=== PATIENT | female | born 1945 | race American Indian/Alaskan Native ===

== ENCOUNTER 2016-08-29 12:42 | Outpatient (CLI) | payer MEDICARE ==
--- NOTE | 2016-08-29 16:47 | Cat Scan Report ---
CT of the abdomen and pelvis without contrast. History: Left-sided abdominal and pelvic pain. Findings: The liver, spleen, and pancreas are normal. There is a 3 mm stone in the lower pole of the right kidney. There is no hydronephrosis. There is a 4.9 cm round cystic mass in the upper pole of the left kidney. There is a subcentimeter cystic mass in the anterior aspect of the lower pole of the left kidney. There is no hydronephrosis. There is no adenopathy within the retroperitoneum. No pelvic masses or abnormal fluid collections are seen. There is no mesenteric inflammation. The uterus is absent. The appendix is normal. Impression: 1. Left renal cysts, largest in the upper pole. 2. 3 mm right renal stone with no hydronephrosis.
== END 2016-08-29 12:43 | disposition home or self-care (01) ==
LOC: CT 12:42
PROVIDERS: ATTEND Internal Medicine
DX: N28.1 Cyst of kidney, acquired (principal); N20.0 Calculus of kidney; N93.8 Other specified abnormal uterine and vaginal bleeding; Z90.710 Acquired absence of both cervix and uterus
CPT/HCPCS: 74176

== ENCOUNTER 2016-12-29 10:43 | Inpatient (IN) | payer MEDICARE ==
[2016-12-29] MEDS ORDERED: NACL 0.9% 1000 ML 1,000 ML IV ONE (11:40)
[2016-12-29 12:04] LABS: Basophils % (Auto) 0.4 % (0.0-1.8); Eosinophils % (Auto) 1.1 % (0.0-4.3); Hematocrit 30.2 % (30.3-42.9); Hemoglobin 9.6 gm/dl (10.1-14.3); Mean Corpuscular HGB Conc 32 % (30-34); Mean Corpuscular Volume 75 fl (79-97); Platelet Count 267 K/mm3 (140-440); Red Blood Count 4.05 M/mm3 (3.65-5.03); Red Cell Distribution Width 16.3 % (13.2-15.2); White Blood Count 8.1 K/mm3 (4.5-11.0)
[2016-12-29 12:09] LABS: Mean Corpuscular Hemoglobin 24 pg (28-32)
[2016-12-29 12:16] LABS: INR 0.98 (0.87-1.13)
[2016-12-29 12:17] LABS: Partial Thromboplastin Time 34.6 Sec. (24.2-36.6)
[2016-12-29 12:23] LABS: Albumin 3.6 g/dL (3.9-5); Albumin/Globulin Ratio 1.2 %; Alkaline Phosphatase 89 units/L (35-129); Anion Gap 16 mmol/L; BUN/Creatinine Ratio 22.66; Blood Urea Nitrogen 34 mg/dL (7-17); Calcium 8.7 mg/dL (8.4-10.2); Carbon Dioxide 28 mmol/L (22-30); Chloride 102.5 mmol/L (98-107); Glucose 112 mg/dL (65-100); Lipase 19 units/L (13-60); Potassium 4.6 mmol/L (3.6-5.0); Sodium 142 mmol/L (137-145); Total Protein 6.7 g/dL (6.3-8.2)
[2016-12-29 12:30] LABS: Alanine Aminotransferase < 5 units/L (7-56)
--- NOTE | 2016-12-29 13:41 | Emergency Department Report ---
ED GI Bleed HPI - General Chief complaint: GI Bleed Stated complaint: PASSING BLOOD CLOTS IN STOOL Time Seen by Provider: 12/29/16 13:21 Source: patient Mode of arrival: Ambulatory Limitations: No Limitations - History of Present Illness MD complaint: melena, blood streaked stool, gross hematochezia -: days(s) (TWO DAYS) Radiation: none Severity scale (0 -10): 0 - Related Data Home Medications Medication Instructions Recorded Confirmed Last Taken Aspirin EC [Aspirin Enteric Coated 2 tab PO DAILY 03/09/14 03/23/14 03/09/14 TAB] Gabapentin 400 mg PO DAILY 03/09/14 03/23/14 03/22/14 Lisinopril 10 mg PO BID 03/09/14 03/23/14 03/22/14 08:00 Multivitamin [Multi-Vitamin Daily] 1 each PO DAILY 03/09/14 03/23/14 03/09/14 Sertraline [Zoloft] 50 mg PO HS 03/09/14 03/23/14 03/22/14 Triamter/Hctz 75-50 mg [Maxzide 1 tab PO QDAY 03/09/14 03/23/14 03/22/14 75-50 mg] amLODIPine [Norvasc] 10 mg PO DAILY 03/09/14 03/23/14 03/22/14 metFORMIN [Glucophage] 500 mg PO BID 03/09/14 03/23/14 03/22/14 08:00 Previous Rx's Medication Instructions Recorded Last Taken Type Enoxaparin [Lovenox] 40 mg SQ QDAY #14 syringe 03/25/14 Unknown Rx Oxycodone HCl/Acetaminophen 1 each PO Q6HR PRN #60 tablet 03/25/14 Unknown Rx [Percocet 7.5/325 mg] Allergies Allergy/AdvReac Type Severity Reaction Status Date / Time No Known Allergies Allergy Verified 12/29/16 11:39 ED Review of Systems ROS: Stated complaint: PASSING BLOOD CLOTS IN STOOL Other details as noted in HPI Comment: All other systems reviewed and negative Constitutional: denies: chills, fever Respiratory: denies: cough, shortness of breath, SOB with exertion Cardiovascular: palpitations, syncope. denies: chest pain Gastrointestinal: diarrhea, melena, hematochezia. denies: abdominal pain, nausea, vomiting, constipation, hematemesis Neurological: denies: headache Hematological/Lymphatic: denies: easy bleeding, easy bruising, swollen glands ED Past Medical Hx - Past Medical History Hx Hypertension: Yes Hx Diabetes: Yes (NO MEDS) Hx Renal Disease: Yes Hx Arthritis: Yes Hx Kidney Stones: Yes - Surgical History Additional Surgical History: LEFT KNEE REPLACEMENT. HYSTERECTOMY - Social History Smoking Status: Never Smoker Substance Use Type: None - Medications Home Medications: Home Medications Medication Instructions Recorded Confirmed Last Taken Type Aspirin EC [Aspirin Enteric Coated 2 tab PO DAILY 03/09/14 03/23/14 03/09/14 History TAB] Gabapentin 400 mg PO DAILY 03/09/14 03/23/14 03/22/14 History Lisinopril 10 mg PO BID 03/09/14 03/23/14 03/22/14 08:00 History Multivitamin [Multi-Vitamin Daily] 1 each PO DAILY 03/09/14 03/23/14 03/09/14 History Sertraline [Zoloft] 50 mg PO HS 03/09/14 03/23/14 03/22/14 History Triamter/Hctz 75-50 mg [Maxzide 1 tab PO QDAY 03/09/14 03/23/14 03/22/14 History 75-50 mg] amLODIPine [Norvasc] 10 mg PO DAILY 03/09/14 03/23/14 03/22/14 History metFORMIN [Glucophage] 500 mg PO BID 03/09/14 03/23/14 03/22/14 08:00 History Enoxaparin [Lovenox] 40 mg SQ QDAY #14 syringe 03/25/14 Unknown Rx Oxycodone HCl/Acetaminophen 1 each PO Q6HR PRN #60 tablet 03/25/14 Unknown Rx [Percocet 7.5/325 mg] ED Physical Exam - General Limitations: No Limitations General appearance: alert - Head Head exam: Present: atraumatic - Eye Eye exam: Present: normal appearance - ENT ENT exam: Present: normal exam - Neck Neck exam: Present: normal inspection - Respiratory Respiratory exam: Present: normal lung sounds bilaterally. Absent: wheezes, rales, rhonchi - Cardiovascular Cardiovascular Exam: Present: tachycardia - GI/Abdominal GI/Abdominal exam: Present: soft. Absent: tenderness, guarding, rebound - Rectal Rectal exam: Present: normal inspection, normal rectal tone, heme (+) stool, black stool, bloody stool. Absent: fecal impaction, hemorrhoids, mass, tenderness - Back Exam Back exam: Absent: normal inspection, CVA tenderness (R), CVA tenderness (L) - Neurological Exam Neurological exam: Present: alert, oriented X3, CN II-XII intact, normal gait, reflexes normal. Absent: motor sensory deficit - Skin Skin exam: Present: warm, dry, intact, normal color. Absent: pallor ED Course Vital Signs 12/29/16 12/29/16 12/29/16 11:29 13:04 13:07 Temperature 97.9 F 98.7 F Pulse Rate 107 H 97 H Respiratory 18 12 Rate Blood Pressure 144/92 Blood Pressure 104/62 [Left] O2 Sat by Pulse 98 98 98 Oximetry - Reevaluation(s) Reevaluation #1: 12/29/16 14:[address] ARVIZU FROM GI AND DR FERNANDEZ FOR ADMISSION. ED Medical Decision Making - Lab Data Result diagrams: 12/29/16 11:49 12/29/16 11:49 Critical care attestation.: If time is entered above; I have spent that time in minutes in the direct care of this critically ill patient, excluding procedure time. ED Disposition Clinical Impression: GI bleeding Disposition: DC-09 OP ADMIT IP TO THIS HOSP Is pt being admited?: Yes Does the pt Need Aspirin: No Condition: Stable Forms: Accompanied Note
--- NOTE | 2016-12-29 15:10 | History and Physical Report ---
History of Present Illness Date of examination: 12/29/16 Date of admission: 12/29/16 Chief complaint: Chief complaint: BRBPR for 2 days History of present illness: History of present illness: 71-year-old -[place] female with history of hypertension diabetes depression comes in for bright red blood per rectum for 2 days. I'll also blood clots in the stool for 2 days. Feels lightheaded and weak. No shortness of breath. No fever or chills. - Past Medical History Hx Hypertension: Yes Hx Diabetes: Yes Hx Renal Disease: Yes Hx Arthritis: Yes Hx Kidney Stones: Yes - Surgical History Additional Surgical History: LEFT KNEE REPLACEMENT. HYSTERECTOMY - Social History Smoking Status: Never Smoker Substance Use Type: None Family history hypertension - Medications Home Medications: Home Medications Medication Instructions Recorded Confirmed Last Taken Type Aspirin EC [Aspirin Enteric Coated 2 tab PO DAILY 03/09/14 03/23/14 03/09/14 History TAB] Gabapentin 400 mg PO DAILY 03/09/14 03/23/14 03/22/14 History Lisinopril 10 mg PO BID 03/09/14 03/23/14 03/22/14 08:00 History Multivitamin [Multi-Vitamin Daily] 1 each PO DAILY 03/09/14 03/23/14 03/09/14 History Sertraline [Zoloft] 50 mg PO HS 03/09/14 03/23/14 03/22/14 History Triamter/Hctz 75-50 mg [Maxzide 1 tab PO QDAY 03/09/14 03/23/14 03/22/14 History 75-50 mg] amLODIPine [Norvasc] 10 mg PO DAILY 03/09/14 03/23/14 03/22/14 History metFORMIN [Glucophage] 500 mg PO BID 03/09/14 03/23/14 03/22/14 08:00 History Enoxaparin [Lovenox] 40 mg SQ QDAY #14 syringe 03/25/14 Unknown Rx Oxycodone HCl/Acetaminophen 1 each PO Q6HR PRN #60 tablet 03/25/14 Unknown Rx [Percocet 7.5/325 mg] Review of System: Constitutional: no fever, no chills, no weight loss Ears, eyes, nose, mouth and throat: no nasal congestion, no nasal discharge, no sinus pressure, no vision change, no red eye. Neck: No neck pain or rigidity. Cardiovascular: No chest pain, no orthopnea, no palpitations, no leg swelling Respiratory: No shortness of breath, no cough, no congestion, no wheezing Gastrointestinal: no abdominal pain, no nausea, no vomiting bright red blood per rectum for 2 days. Genitourinary : no dysuria, no hematuria Musculoskeletal: no joint swelling or muscle ache Integumentary: no rash, no pruritis Neurological: no parathesias, no numbness, no tingling Endocrine: no cold or heat intolerance, no polyuria or polydipsia Hematologic/Lymphatic: no easy bruising, no easy bleeding, no gland swelling Allergic/Immunologic: no urticaria, no angioedema. Medications and Allergies Allergies Allergy/AdvReac Type Severity Reaction Status Date / Time No Known Allergies Allergy Verified 12/29/16 11:39 Home Medications Medication Instructions Recorded Confirmed Last Taken Type Aspirin EC [Aspirin Enteric Coated 2 tab PO DAILY 03/09/14 03/23/14 03/09/14 History TAB] Gabapentin 400 mg PO DAILY 03/09/14 03/23/14 03/22/14 History Lisinopril 10 mg PO BID 03/09/14 03/23/14 03/22/14 08:00 History Multivitamin [Multi-Vitamin Daily] 1 each PO DAILY 03/09/14 03/23/14 03/09/14 History Sertraline [Zoloft] 50 mg PO HS 03/09/14 03/23/14 03/22/14 History Triamter/Hctz 75-50 mg [Maxzide 1 tab PO QDAY 03/09/14 03/23/14 03/22/14 History 75-50 mg] amLODIPine [Norvasc] 10 mg PO DAILY 03/09/14 03/23/14 03/22/14 History metFORMIN [Glucophage] 500 mg PO BID 03/09/14 03/23/14 03/22/14 08:00 History Enoxaparin [Lovenox] 40 mg SQ QDAY #14 syringe 03/25/14 Unknown Rx Oxycodone HCl/Acetaminophen 1 each PO Q6HR PRN #60 tablet 03/25/14 Unknown Rx [Percocet 7.5/325 mg] Active Meds: Active Medications Sodium Chloride (Nacl 0.9% 1000 Ml) 1,000 mls @ 250 mls/hr IV ONCE ONE Stop: 12/29/16 15:39 Last Admin: 12/29/16 13:40 Dose: 250 mls/hr Exam - Physical Exam Narrative exam: Lying in bed comfortably - Constitutional Vitals: Temp Pulse Resp BP Pulse Ox 98.7 F 97 H 12 104/62 98 12/29/16 13:04 12/29/16 13:04 12/29/16 13:04 12/29/16 13:04 12/29/16 13:07 General appearance: Present: no acute distress, well-nourished - EENT Eyes: Present: PERRL ENT: hearing intact, clear oral mucosa - Neck Neck: Present: supple, normal ROM - Respiratory Respiratory effort: normal Respiratory: bilateral: CTA - Cardiovascular Heart Sounds: Present: S1 & S2. Absent: rub, click - Extremities Extremities: pulses symmetrical, No edema Peripheral Pulses: within normal limits - Abdominal General gastrointestinal: Present: soft, non-tender, non-distended, normal bowel sounds Female genitourinary: Present: normal - Integumentary Integumentary: Present: clear, warm, dry - Musculoskeletal Musculoskeletal: gait normal, strength equal bilaterally - Psychiatric Psychiatric: appropriate mood/affect, intact judgment & insight - Neurologic Neurologic: CNII-XII intact, moves all extremities Results - Labs CBC & Chem 7: 12/29/16 11:49 12/29/16 11:49 Labs: Laboratory Last Values WBC 8.1 K/mm3 (4.5-11.0) 12/29/16 11:49 RBC 4.05 M/mm3 (3.65-5.03) 12/29/16 11:49 Hgb 9.6 gm/dl (10.1-14.3) L 12/29/16 11:49 Hct 30.2 % (30.3-42.9) L 12/29/16 11:49 MCV 75 fl (79-97) L 12/29/16 11:49 MCH 24 pg (28-32) L 12/29/16 11:49 MCHC 32 % (30-34) 12/29/16 11:49 RDW 16.3 % (13.2-15.2) H 12/29/16 11:49 Plt Count 267 K/mm3 (140-440) 12/29/16 11:49 Lymph % (Auto) 30.7 % (13.4-35.0) 12/29/16 11:49 [place] % (Auto) 7.3 % (0.0-7.3) 12/29/16 11:49 Eos % (Auto) 1.1 % (0.0-4.3) 12/29/16 11:49 Baso % (Auto) 0.4 % (0.0-1.8) 12/29/16 11:49 Lymph # 2.5 K/mm3 (1.2-5.4) 12/29/16 11:49 [place] # 0.6 K/mm3 (0.0-0.8) 12/29/16 11:49 Eos # 0.1 K/mm3 (0.0-0.4) 12/29/16 11:49 Baso # 0.0 K/mm3 (0.0-0.1) 12/29/16 11:49 Seg Neutrophils % 60.5 % (40.0-70.0) 12/29/16 11:49 Seg Neutrophils # 4.9 K/mm3 (1.8-7.7) 12/29/16 11:49 PT 13.5 Sec. (12.2-14.9) 12/29/16 11:49 INR 0.98 (0.87-1.13) 12/29/16 11:49 APTT 34.6 Sec. (24.2-36.6) 12/29/16 11:49 Sodium 142 mmol/L (137-145) 12/29/16 11:49 Potassium 4.6 mmol/L (3.6-5.0) 12/29/16 11:49 Chloride 102.5 mmol/L (98-107) 12/29/16 11:49 Carbon Dioxide 28 mmol/L (22-30) 12/29/16 11:49 Anion Gap 16 mmol/L 12/29/16 11:49 BUN 34 mg/dL (7-17) H 12/29/16 11:49 Creatinine 1.5 mg/dL (0.7-1.2) H 12/29/16 11:49 Estimated GFR 42 ml/min 12/29/16 11:49 BUN/Creatinine Ratio 22.66 % 12/29/16 11:49 Glucose 112 mg/dL (65-100) H 12/29/16 11:49 Calcium 8.7 mg/dL (8.4-10.2) 12/29/16 11:49 Total Bilirubin 0.20 mg/dL (0.1-1.2) 12/29/16 11:49 AST 12 units/L (5-40) 12/29/16 11:49 ALT < 5 units/L (7-56) L 12/29/16 11:49 Alkaline Phosphatase 89 units/L (35-129) 12/29/16 11:49 Total Protein 6.7 g/dL (6.3-8.2) 12/29/16 11:49 Albumin 3.6 g/dL (3.9-5) L 12/29/16 11:49 Albumin/Globulin Ratio 1.2 % 12/29/16 11:49 Lipase 19 units/L (13-60) 12/29/16 11:49 Blood Type O POSITIVE 12/29/16 11:49 Antibody Screen TNR 12/29/16 11:49 KB Antibody Screen Negative 12/29/16 11:49 Short CBC 12/29/16 Range/Units 11:49 WBC 8.1 (4.5-11.0) K/mm3 Hgb 9.6 L (10.1-14.3) gm/dl Hct 30.2 L (30.3-42.9) % Plt Count 267 (140-440) K/mm3 BMP 12/29/16 11:49 Sodium 142 Potassium 4.6 Chloride 102.5 Carbon Dioxide 28 BUN 34 H Creatinine 1.5 H Glucose 112 H Calcium 8.7 Liver Function 12/29/16 Range/Units 11:49 Total Bilirubin 0.20 (0.1-1.2) mg/dL AST 12 (5-40) units/L ALT < 5 L (7-56) units/L Alkaline Phosphatase 89 (35-129) units/L Albumin 3.6 L (3.9-5) g/dL Assessment and Plan Advance Directives: Yes (full code) VTE prophylaxis?: Mechanical Plan of care discussed with patient/family: Yes - Patient Problems (1) Lower GI bleed Current Visit: Yes Status: Acute Plan to address problem: Monitor hematocrit every 6 hours and transfuse if necessary. GI consult requested. Possibly secondary to diverticulosis. We will defer to gastroenterology regarding colonoscopy. We will keep the patient nothing by mouth. IV fluids for volume support. IV Protonix 40 mg every 12. Hours. (2) Diabetes mellitus Current Visit: No Status: Chronic Qualifiers: Diabetes mellitus type: type 2 Diabetes mellitus complication status: without complication Diabetes mellitus complication detail: D Diabetic retinopathy severity: D Proliferative retinopathy type: P Diabetes mellitus macular edema: D Diabetes mellitus terminal worker insulin use: D Laterality: L Chronic kidney disease stage: C Plan to address problem: Coverage for now. Will hold metformin. Check hemoglobin A1c (3) Hypertension Current Visit: No Status: Chronic Qualifiers: Hypertension type: essential hypertension Qualified Code(s): I10 - Essential (primary) hypertension Plan to address problem: continue lisinopril (4) Depression Current Visit: Yes Status: Chronic Qualifiers: Depression Type: dysthymia Major depression recurrence: M Active/ Remission status: A Major depression episode severity: M Psychotic features : P Trimester: T Qualified Code(s): F34.1 - Dysthymic disorder Plan to address problem: Continue Zoloft. (5) DVT prophylaxis Current Visit: No Status: Acute Plan to address problem: SCDs for now
[2016-12-29] MEDS ORDERED: DILAUDID IV PRN (15:11)
[2016-12-29] MEDS ORDERED: DULCOLAX PR PRN (15:11)
[2016-12-29] MEDS ORDERED: MILK OF MAGNESIA PO PRN (15:11)
[2016-12-29] MEDS ORDERED: TYLENOL PO PRN (15:11)
[2016-12-29] MEDS ORDERED: ZOFRAN IV PRN (15:11)
[2016-12-29] MEDS ORDERED: D50W (25GM) IV PRN (15:11)
[2016-12-29] MEDS ORDERED: CATAPRES-TTS PATCH TD SCH (16:00)
[2016-12-29] MEDS: PROTONIX IV SCH ×2 (16:31→21:57)
[2016-12-30 05:54] LABS: Basophils % (Auto) 0.5 % (0.0-1.8); Eosinophils % (Auto) 2.3 % (0.0-4.3); Mean Corpuscular HGB Conc 32 % (30-34); Mean Corpuscular Hemoglobin 24 pg (28-32); Mean Corpuscular Volume 75 fl (79-97); Platelet Count 208 K/mm3 (140-440); Red Blood Count 3.33 M/mm3 (3.65-5.03); Red Cell Distribution Width 16.4 % (13.2-15.2); White Blood Count 5.5 K/mm3 (4.5-11.0)
[2016-12-30 06:16] LABS: Albumin 2.9 g/dL (3.9-5); Albumin/Globulin Ratio 1.1 %; Alkaline Phosphatase 75 units/L (35-129); Anion Gap 15 mmol/L; Blood Urea Nitrogen 25 mg/dL (7-17); Calcium 8.5 mg/dL (8.4-10.2); Carbon Dioxide 25 mmol/L (22-30); Chloride 105.2 mmol/L (98-107); Glucose 100 mg/dL (65-100); Potassium 4.1 mmol/L (3.6-5.0); Sodium 141 mmol/L (137-145); Total Protein 5.6 g/dL (6.3-8.2)
[2016-12-30 06:17] LABS: Alanine Aminotransferase < 5 units/L (7-56)
[2016-12-30] MEDS: NACL 0.9% 1000 ML 1,000 ML IV SCH ×2 (06:56→19:29)
--- NOTE | 2016-12-30 09:58 | Admit Criteria Form ---
Admission Criteria Documentation: GASTROINTESTINAL BLEEDING, LOWER Clinical Indications for Admission to Inpatient Care ( Place 'X' for any and all applicable criteria): Admission is indicated for ANY ONE of the following(1)(2)(3)(4)(5): [ ]I. Active gross bleeding per rectum [X]II. Inpatient admission required rather than observation care (Also use Gastrointestinal Bleeding, Lower: Observation Care as appropriate) because of ANY ONE of the following: [ ]a) Hemodynamic instability that is severe or persistent [ ]b) Anemia requiring inpatient admission as indicated by ALL of the following: [ ]1) Presence of significant clinical finding indicated by ANY ONE of the following: [ ]A. Tachycardia for age [ ]B. Orthostatic vital sign changes [ ]C. Cognitive impairment [ ]D. Heart failure [ ]E. Chest pain [ ]F. Exertional dyspnea [ ]G. Other findings suggesting inadequate perfusion (eg, peripheral or myocardial ischemia, end organ dysfunction) [ ]2) Initial (eg, emergency department, observation care) treatment with transfusion or volume replacement is judged inappropriate (due to severity of the finding) or has been ineffective [ ]c) Severe pain requiring acute inpatient management [ ]d) Absent bowel sounds with complete ileus [ ]e) Signs of intestinal obstruction or peritonitis [A] [ ]f) High-risk low platelet count [ ]g) Severe electrolyte abnormalities requiring inpatient care [ ]h) Acute renal failure [ ]i) High fever or infection requiring inpatient admission as indicated by ANY ONE of the following(8)(9): [ ]1) Appropriate outpatient or observation care antimicrobial treatment unavailable, not effective, or not feasible Documented bacteremia [ ]2) Documented bacteremia [ ]3) Temperature greater than 104.9 degrees F ( 40.5 degrees C) (oral) [ ]4) Temperature greater than 103.1 degrees F ( 39.5 degrees C) (oral) or less than 96.8 degrees F (36 degrees C) (rectal) that does not respond to all emergency treatment measures [ ]j) IV fluid to replace significant ongoing losses ( greater than 3 L/m2 per day) [ ]k) Immediate inpatient surgery needed [ ]l) Parenteral nutrition regimen that must be implemented on inpatient basis [X]m) Other condition, treatment or monitoring requiring inpatient admission [ ]III. Unstable comorbid illness (renal, hepatic, pulmonary, hematologic, neurologic, or cardiac) [ ]IV. Failure to control bleeding after colonoscopy [ ]V. Coagulopathy [ ]. Suspected or known ischemic colitis(6) [ ]VII. Previous aortic graft placement or known aortic aneurysm Extended stay beyond goal length of stay may be needed for(3)(4)(28): [ ]a) Emergency surgery [ ]b) Coagulation abnormalities(26) [ ]c) Recurrent or persistent bleeding, continued vital sign instability(27)( 28) [ ]d) Active comorbidities (eg, renal insufficiency, heart failure, pre- existing liver disease) The original [employer] content created by [employer] has been revised. The portions of the content which have been revised are identified through the use of italic text or in bold, and [facility] has neither reviewed nor approved the modified material. All other unmodified content is copyright [facility]. Please see references footnoted in the original [employer] edition 2016 Admission Criteria Met: Yes
--- NOTE | 2016-12-30 10:25 | Gastroenterology Consultation ---
History of Present Illness - Reason for Consult Consult date: 12/30/16 GI bleed Requesting physician: MARVA MATTHEWS - History of Present Illness Patient is a 71 y/o female who presented to the ER with c/o BRBPR x 2 days, lightheadedness, and feeling weak. This morning pt was sitting up on the side of the bed, no acute distress noted. Reports having BRBPR in the toilet and on TP after BMs for past 2 days. She admits to seeing intermittent blood clots with BMs but states stool is brown. Denies BM or active signs of bleeding this morning. Denies CP, SOB, dizziness, abd pain, N/V, fever, wt loss, melena, diarrhea, or constipation. No hx or Fhx of IBD or liver disease. No NSAID or ETOH use. Reports having an EGD/colonoscopy approximately 3 to 4 years ago with negative results. No Fhx of colon CA. PMH significant for HTN, DM, and depression. Past History Past Medical History: diabetes, hypertension, other (depression) Past Surgical History: hysterectomy, total knee replacement Social history: lives with family. denies: smoking, alcohol abuse Family history: cancer (breast) Medications and Allergies Allergies Allergy/AdvReac Type Severity Reaction Status Date / Time No Known Allergies Allergy Verified 12/29/16 11:39 Home Medications Medication Instructions Recorded Confirmed Last Taken Type Lisinopril 10 mg PO BID 03/09/14 12/30/16 12/28/16 08:00 History Multivitamin [Multi-Vitamin Daily] 1 each PO DAILY 03/09/14 12/30/16 12/28/16 08 :00 History Triamter/Hctz 75-50 mg [Maxzide 1 tab PO QDAY 03/09/14 12/30/16 12/28/16 History 75-50 mg] amLODIPine [Norvasc] 10 mg PO DAILY 03/09/14 12/30/16 12/28/16 08:00 History Active Meds: Active Medications Acetaminophen (Tylenol) 650 mg PO Q4H PRN PRN Reason: Pain MILD(1-3)/Fever >100.5/ACUNA Last Admin: 12/30/16 07:45 Dose: 650 mg Bisacodyl (Dulcolax) 10 mg [place] QDAY PRN PRN Reason: Constipation unrelieved by MOM Clonidine HCl (Catapres-Tts Patch) 0.2 mg TD QWEEK [facility] Last Admin: 12/29/16 16:30 Dose: Not Given Dextrose (D50w (25gm)) 50 ml IV PRN PRN PRN Reason: Hypoglycemia Hydromorphone HCl (Dilaudid) 0.5 mg IV Q3H PRN PRN Reason: Pain , Severe (7-10) Sodium Chloride (Nacl 0.9% 1000 Ml) 1,000 mls @ 75 mls/hr IV DIRECT [facility] Last Admin: 12/30/16 06:56 Dose: 75 mls/hr Magnesium Hydroxide (Milk Of Magnesia) 30 ml PO Q4H PRN PRN Reason: Constipation Ondansetron HCl (Zofran) 4 mg IV Q8H PRN PRN Reason: N/V unrelieved by Reglan Pantoprazole Sodium (Protonix) 40 mg IV BID [facility] Last Admin: 12/29/16 21:57 Dose: 40 mg Pneumococcal Polyvalent Vaccine (Pneumovax 23) 0.5 ml IM .ONCE ONE Stop: 12/30/16 12:01 Review of Systems - Review of Systems All systems: negative Constitutional: fatigue, weakness Gastrointestinal: BRBPR, no abdominal pain, no nausea, no vomiting, no hematemesis, no coffee ground emesis, no melena Exam - Constitutional Vital Signs: Temp Pulse Resp BP Pulse Ox 98.0 F 82 18 132/62 95 12/30/16 08:00 12/30/16 08:00 12/30/16 08:00 12/30/16 08:00 12/30/16 08:00 General appearance: no acute distress, well-nourished, obese - EENT Eyes: PERRL, EOM intact ENT: hearing intact - Neck Neck: supple, normal ROM - Respiratory Respiratory: bilateral: CTA - Cardiovascular Rhythm: regular Heart Sounds: Present: S1 & S2 Extremities: No edema - Gastrointestinal General gastrointestinal: Present: soft, non-tender, non-distended, normal bowel sounds - Integumentary Integumentary: Present: warm, dry - Neurologic Neurological: alert and oriented x3 - Psychiatric Psychiatric: appropriate mood/affect, cooperative - Labs CBC & Chem 7: 12/30/16 05:14 12/30/16 05:14 Lab Results: Laboratory Results - last 24 hr 12/30/16 12/30/16 05:14 05:14 WBC 5.5 RBC 3.33 L Hgb 8.0 L Hct 25.0 L MCV 75 L MCH 24 L MCHC 32 RDW 16.4 H Plt Count 208 Lymph % (Auto) 30.0 [place] % (Auto) 7.2 Eos % (Auto) 2.3 Baso % (Auto) 0.5 Lymph # 1.6 [place] # 0.4 Eos # 0.1 Baso # 0.0 Seg Neutrophils % 60.0 Seg Neutrophils # 3.3 Sodium 141 Potassium 4.1 Chloride 105.2 Carbon Dioxide 25 Anion Gap 15 BUN 25 H Creatinine 1.0 Estimated GFR > 60 BUN/Creatinine Ratio 25.00 Glucose 100 Calcium 8.5 Total Bilirubin 0.30 AST 11 ALT < 5 L Alkaline Phosphatase 75 Total Protein 5.6 L Albumin 2.9 L Albumin/Globulin Ratio 1.1 Assessment and Plan 1.GI bleed 2.hematochezia -HGB 8 today -continue to monitor H&H and transfuse as needed -hold blood thinning medications -no active signs of bleeding today, currently hemodynamically stable -clear liquid diet today -NPO after MN -will schedule for colonoscopy in am -will follow
[2016-12-30] MEDS: PROTONIX IV SCH ×2 (10:34→23:03)
--- NOTE | 2016-12-30 10:44 | Progress Note ---
Assessment and Plan Assessment and plan: Patient is a 71-year-old woman history of hypertension, type 2 diabetes mellitus , CK D stage III, OA and chronic anemia who presents to [facility] emergency department with rectal bleeding. -Acute on chronic blood loss anemia due to GI bleed: Monitor H&H closely, colonoscopy a.m. -Acute renal failure/CK D3, due to vasomotor nephropathy present on admission: Hydrate, repeat BMP a.m. -Morbid obesity, BMI 45.7: [employer] on lifestyle modification, consult dietitian -Type 2 diabetes mellitus: Sliding scale, ADA diet -Essential hypertension: Continue to monitor -DVT prophylaxis: SCDs only due to anemia and GI bleed History Interval history: Patient seen and examined. Follow up on current diagnosis/GI bleed. Overnight uneventful. No cp, sob, n/v or severe headaches. Imaging, old records, testing, labs, nursing notes reviewed. Hospitalist Physical - Physical exam Narrative exam: GEN: WDWN, NAD, AWAKE, ALERT, ORIENTATED x 3, morbid obesity HEENT: NCAT, PERRL, EOMI, OP CLEAR NECK: SUPPLE, NO THYROMEGALY, NO JVD, NO LAD CVS: RRR, NORMAL S1S2 LUNGS/CHEST: CTA B, NORMAL CHEST EXPANSION B, GOOD AIR ENTRY B ABD: SOFT, NTND, GBS, NO REBOUND OR GUARDING EXT/SKIN: NO SIGNIFICANT EDEMA OR RASH MSK: FROM X 4 EXTREMITIES NEURO: CN 2-12 GROSSLY INTACT, NO FOCAL DEFICITS PSY: CALM - Constitutional Vitals: Temp Pulse Resp BP Pulse Ox 98.0 F 82 18 132/62 95 12/30/16 08:00 12/30/16 08:00 12/30/16 08:00 12/30/16 08:00 12/30/16 08:00 General appearance: Present: no acute distress, well-nourished Results - Labs CBC & Chem 7: 12/30/16 05:14 12/30/16 05:14 Labs: Laboratory Last Values WBC 5.5 K/mm3 (4.5-11.0) 12/30/16 05:14 RBC 3.33 M/mm3 (3.65-5.03) L 12/30/16 05:14 Hgb 8.0 gm/dl (10.1-14.3) L 12/30/16 05:14 Hct 25.0 % (30.3-42.9) L 12/30/16 05:14 MCV 75 fl (79-97) L 12/30/16 05:14 MCH 24 pg (28-32) L 12/30/16 05:14 MCHC 32 % (30-34) 12/30/16 05:14 RDW 16.4 % (13.2-15.2) H 12/30/16 05:14 Plt Count 208 K/mm3 (140-440) 12/30/16 05:14 Lymph % (Auto) 30.0 % (13.4-35.0) 12/30/16 05:14 [place] % (Auto) 7.2 % (0.0-7.3) 12/30/16 05:14 Eos % (Auto) 2.3 % (0.0-4.3) 12/30/16 05:14 Baso % (Auto) 0.5 % (0.0-1.8) 12/30/16 05:14 Lymph # 1.6 K/mm3 (1.2-5.4) 12/30/16 05:14 [place] # 0.4 K/mm3 (0.0-0.8) 12/30/16 05:14 Eos # 0.1 K/mm3 (0.0-0.4) 12/30/16 05:14 Baso # 0.0 K/mm3 (0.0-0.1) 12/30/16 05:14 Seg Neutrophils % 60.0 % (40.0-70.0) 12/30/16 05:14 Seg Neutrophils # 3.3 K/mm3 (1.8-7.7) 12/30/16 05:14 PT 13.5 Sec. (12.2-14.9) 12/29/16 11:49 INR 0.98 (0.87-1.13) 12/29/16 11:49 APTT 34.6 Sec. (24.2-36.6) 12/29/16 11:49 Sodium 141 mmol/L (137-145) 12/30/16 05:14 Potassium 4.1 mmol/L (3.6-5.0) 12/30/16 05:14 Chloride 105.2 mmol/L (98-107) 12/30/16 05:14 Carbon Dioxide 25 mmol/L (22-30) 12/30/16 05:14 Anion Gap 15 mmol/L 12/30/16 05:14 BUN 25 mg/dL (7-17) H 12/30/16 05:14 Creatinine 1.0 mg/dL (0.7-1.2) 12/30/16 05:14 Estimated GFR > 60 ml/min 12/30/16 05:14 BUN/Creatinine Ratio 25.00 % 12/30/16 05:14 Glucose 100 mg/dL (65-100) 12/30/16 05:14 Calcium 8.5 mg/dL (8.4-10.2) 12/30/16 05:14 Total Bilirubin 0.30 mg/dL (0.1-1.2) 12/30/16 05:14 AST 11 units/L (5-40) 12/30/16 05:14 ALT < 5 units/L (7-56) L 12/30/16 05:14 Alkaline Phosphatase 75 units/L (35-129) 12/30/16 05:14 Total Protein 5.6 g/dL (6.3-8.2) L 12/30/16 05:14 Albumin 2.9 g/dL (3.9-5) L 12/30/16 05:14 Albumin/Globulin Ratio 1.1 % 12/30/16 05:14 Lipase 19 units/L (13-60) 12/29/16 11:49 Blood Type O POSITIVE 12/29/16 11:49 Antibody Screen TNR 12/29/16 11:49 KB Antibody Screen Negative 12/29/16 11:49
[2016-12-30] MEDS ORDERED: PNEUMOVAX 23 IM ONE (12:00)
[2016-12-30] MEDS ORDERED: GOLYTELY PO ONE ×2 (12:00→16:00)
[2016-12-30 13:44] LABS: Hematocrit 24.4 % (30.3-42.9); Hemoglobin 7.8 gm/dl (10.1-14.3)
[2016-12-30 21:45] LABS: Hematocrit 24.1 % (30.3-42.9); Hemoglobin 7.7 gm/dl (10.1-14.3)
[2016-12-31 05:38] LABS: Hematocrit 23.4 % (30.3-42.9); Hemoglobin 7.8 gm/dl (10.1-14.3); Mean Corpuscular HGB Conc 33 % (30-34); Mean Corpuscular Volume 75 fl (79-97); Platelet Count 220 K/mm3 (140-440); Red Blood Count 3.14 M/mm3 (3.65-5.03); Red Cell Distribution Width 16.7 % (13.2-15.2); White Blood Count 6.6 K/mm3 (4.5-11.0)
[2016-12-31 05:53] LABS: BUN/Creatinine Ratio 12.72; Calcium 7.9 mg/dL (8.4-10.2); Chloride 105.3 mmol/L (98-107); Potassium 3.9 mmol/L (3.6-5.0)
[2016-12-31 05:55] LABS: Mean Corpuscular Hemoglobin 25 pg (28-32)
[2016-12-31] MEDS: NACL 0.9% 1000 ML 1,000 ML IV SCH ×2 (06:35→12:24)
[2016-12-31] MEDS: PROTONIX IV SCH (11:06)
--- NOTE | 2016-12-31 11:18 | Progress Note ---
Assessment and Plan Assessment and plan: Acute on chronic blood loss anemia due to GI bleed. Monitor H&H closely, colonoscopy today Acute renal failure/CK D3, due to vasomotor nephropathy present on admission. Resolved. Morbid obesity, BMI 45.7: [facility] Resident on lifestyle modification, consult dietitian Type 2 diabetes mellitus: Continue Sliding scale, ADA diet Essential hypertension: Continue to monitor DVT prophylaxis: SCDs only due to anemia and GI bleed History Interval history: No new issues overnight. Patient with no active episodes of bleeding. Hospitalist Physical - Constitutional Vitals: Temp Pulse Resp BP Pulse Ox 97.9 F 85 20 139/63 95 12/31/16 08:00 12/31/16 08:00 12/31/16 08:00 12/31/16 08:00 12/31/16 04:00 General appearance: Present: no acute distress, well-nourished - EENT Eyes: Present: PERRL, EOM intact ENT: hearing intact, clear oral mucosa, dentition normal - Neck Neck: Present: supple, normal ROM - Respiratory Respiratory effort: normal Respiratory: bilateral: CTA - Cardiovascular Rhythm: regular Heart Sounds: Present: S1 & S2. Absent: gallop, rub - Extremities Extremities: no ischemia, No edema, Full ROM - Abdominal General gastrointestinal: soft, non-tender, non-distended, normal bowel sounds - Integumentary Integumentary: Present: clear, warm, dry - Neurologic Neurologic: CNII-XII intact, moves all extremities Results - Labs CBC & Chem 7: 12/31/16 04:19 12/31/16 04:19 Labs: Laboratory Last Values WBC 6.6 K/mm3 (4.5-11.0) 12/31/16 04:19 RBC 3.14 M/mm3 (3.65-5.03) L 12/31/16 04:19 Hgb 7.8 gm/dl (10.1-14.3) L 12/31/16 04:19 Hct 23.4 % (30.3-42.9) L 12/31/16 04:19 MCV 75 fl (79-97) L 12/31/16 04:19 MCH 25 pg (28-32) L 12/31/16 04:19 MCHC 33 % (30-34) 12/31/16 04:19 RDW 16.7 % (13.2-15.2) H 12/31/16 04:19 Plt Count 220 K/mm3 (140-440) 12/31/16 04:19 Lymph % (Auto) 30.0 % (13.4-35.0) 12/30/16 05:14 [place] % (Auto) 7.2 % (0.0-7.3) 12/30/16 05:14 Eos % (Auto) 2.3 % (0.0-4.3) 12/30/16 05:14 Baso % (Auto) 0.5 % (0.0-1.8) 12/30/16 05:14 Lymph # 1.6 K/mm3 (1.2-5.4) 12/30/16 05:14 [place] # 0.4 K/mm3 (0.0-0.8) 12/30/16 05:14 Eos # 0.1 K/mm3 (0.0-0.4) 12/30/16 05:14 Baso # 0.0 K/mm3 (0.0-0.1) 12/30/16 05:14 Seg Neutrophils % 60.0 % (40.0-70.0) 12/30/16 05:14 Seg Neutrophils # 3.3 K/mm3 (1.8-7.7) 12/30/16 05:14 PT 13.5 Sec. (12.2-14.9) 12/29/16 11:49 INR 0.98 (0.87-1.13) 12/29/16 11:49 APTT 34.6 Sec. (24.2-36.6) 12/29/16 11:49 Sodium 141 mmol/L (137-145) 12/31/16 04:19 Potassium 3.9 mmol/L (3.6-5.0) 12/31/16 04:19 Chloride 105.3 mmol/L (98-107) 12/31/16 04:19 Carbon Dioxide 25 mmol/L (22-30) 12/31/16 04:19 Anion Gap 15 mmol/L 12/31/16 04:19 BUN 14 mg/dL (7-17) 12/31/16 04:19 Creatinine 1.1 mg/dL (0.7-1.2) 12/31/16 04:19 Estimated GFR 60 ml/min 12/31/16 04:19 BUN/Creatinine Ratio 12.72 % 12/31/16 04:19 Glucose 98 mg/dL (65-100) 12/31/16 04:19 Calcium 7.9 mg/dL (8.4-10.2) L 12/31/16 04:19 Total Bilirubin 0.30 mg/dL (0.1-1.2) 12/30/16 05:14 AST 11 units/L (5-40) 12/30/16 05:14 ALT < 5 units/L (7-56) L 12/30/16 05:14 Alkaline Phosphatase 75 units/L (35-129) 12/30/16 05:14 Total Protein 5.6 g/dL (6.3-8.2) L 12/30/16 05:14 Albumin 2.9 g/dL (3.9-5) L 12/30/16 05:14 Albumin/Globulin Ratio 1.1 % 12/30/16 05:14 Lipase 19 units/L (13-60) 12/29/16 11:49 Blood Type O POSITIVE 12/29/16 11:49 Antibody Screen TNR 12/29/16 11:49 KB Antibody Screen Negative 12/29/16 11:49
--- NOTE | 2016-12-31 12:15 | Anesthesia Consultation ---
Anesthesia Consult and Med Hx Date of service: 12/31/16 - Airway Anesthetic Teeth Evaluation: Partials ROM Head & Neck: Adequate Mental/Hyoid Distance: Adequate Mallampati Class: Class II Intubation Access Assessment: Probably Good - Pulmonary Exam CTA: Yes - Cardiac Exam Cardiac Exam: RRR - Pre-Operative Health Status ASA Pre-Surgery Classification: ASA3 Proposed Anesthetic Plan: MAC - Pulmonary Hx Smoking: No Hx Sleep Apnea: No - Cardiovascular System Hx Hypertension: Yes Hx Angina: No - Gastrointestinal Hx Gastroesophageal Reflux Disease: No - Endocrine Hx Renal Disease: Yes (elevated creatinine on admission- resolved) Hx Non-Insulin Dependent Diabetes: Yes (borderline) - Other Systems Hx Alcohol Use: Yes (X2 MONTH)
--- NOTE | 2016-12-31 12:16 | Anesthesia Day of Surgery ---
Anesthesia Day of Surgery - Day of Surgery Patient Examined: Yes Patient H&P Reviewed: Yes Patient is NPO: Yes
[2016-12-31] MEDS ORDERED: WATER FOR IRRIG STERILE ONE (13:19)
[2016-12-31] MEDS ORDERED: DIPRIVAN 10 MG/ML IV ONE ×2 (13:51)
[2016-12-31] MEDS ORDERED: INFANTS' GAS RELIEF PO ONE (14:01)
--- NOTE | 2016-12-31 14:20 | Post Operative Note ---
Pre-op diagnosis: GI Bleed Post-op diagnosis: other (Tics, IH) Findings: 1. Grade II Internal Hemorrhoids 2. Trace brown stool, easily lavaged, no blood 3. Diverticulosis (mild in sigmoid, a couple in R colon); likely source of bleeding Procedure: Colonoscopy Anesthesia: MAC Surgeon: XIAO ARVIZU Estimated blood loss: none Pathology: none Specimen disposition: other (N/A) Condition: stable Disposition: floor (Recs: 1. Regular diet. 2. MVI daily therapy. 3. May d/c in the AM if no bleeding and hct improved. 4. If rebleeds, would get EGD and angiogram CT (or bleed scan). 5. Avoid all NSAIDs for 2 weeks.)
--- NOTE | 2016-12-31 14:24 | Post Anesthesia Evaluation ---
- Post Anesthesia Evaluation Patient Participated: Yes Airway Patent: Yes Stable Respiratory Function: Yes Temp > 96.8F: Yes Pain Manageable: Yes Adequeate Hydration: Yes Anesthesia Complications: No Block Receding Appropriately: Not Applicable
[2016-12-31] MEDS: THERAGRAN-M Tab PO SCH (16:10)
--- NOTE | 2016-12-31 18:50 | Operative Report ---
PROCEDURE PERFORMED: Colonoscopy. PREOPERATIVE DIAGNOSIS: Gastrointestinal bleeding. POSTOPERATIVE DIAGNOSES: Hemorrhoids, diverticulosis, no active bleeding. ENDOSCOPIST: El Abbott MD. INSTRUMENT: Shadow Puppet video endoscope. MEDICATIONS: MAC anesthesia by Anesthesia Services. COMPLICATIONS: No apparent complications. ESTIMATED BLOOD LOSS: None. SPECIMENS: None. IMPLANTS: None. ASSISTANTS: None. CONDITION AT COMPLETION: Stable. TECHNIQUE: The patient was informed of risks and benefits of the procedure. She signed the informed consent to proceed. She was placed in left lateral decubitus position. The above sedative medications were given. Her vital signs remained stable throughout the procedure. The instrument was advanced from the anus to the cecum under direct visualization. The cecum was identified by the appendiceal orifice, the ileocecal valve, and cannulation of the terminal ileum. At that point, the bowel was insufflated and the endoscope was slowly withdrawn. FINDINGS: 1. No active bleeding in the colon with a trace of brown stool that was easily lavaged even in the terminal ileum. 2. Grade 2 internal hemorrhoids, not actively bleeding. 3. Isolated diverticulosis; there were a few in the sigmoid colon and a couple in the right colon; these were likely the source of bleeding, but no active bleeding was noted. 4. Good visualization was seen of the right colon/cecum and no evidence of arteriovenous malformations were noted. RECOMMENDATIONS: 1. Regular diet. 2. Multivitamin daily therapy. 3. May discharge in the morning if no bleeding and if hematocrit is improved. 4. If the patient rebleeds, she should get an upper endoscopy and an angiogram/CT or a bleeding scan. 4. Avoid all nonsteroidal anti-inflammatory drugs for 2 weeks. JOB# [id number] AIXA/NTS
[2017-01-01 06:22] LABS: Basophils % (Auto) 0.5 % (0.0-1.8); Eosinophils % (Auto) 2.1 % (0.0-4.3); Hematocrit 23.9 % (30.3-42.9); Hemoglobin 7.7 gm/dl (10.1-14.3); Mean Corpuscular HGB Conc 32 % (30-34); Mean Corpuscular Volume 76 fl (79-97); Platelet Count 231 K/mm3 (140-440); Red Blood Count 3.17 M/mm3 (3.65-5.03); Red Cell Distribution Width 16.5 % (13.2-15.2); White Blood Count 5.8 K/mm3 (4.5-11.0)
[2017-01-01 06:26] LABS: Mean Corpuscular Hemoglobin 24 pg (28-32)
[2017-01-01 06:35] LABS: BUN/Creatinine Ratio 10.9; Calcium 8.1 mg/dL (8.4-10.2); Potassium 4.1 mmol/L (3.6-5.0)
--- NOTE | 2017-01-01 07:53 | Discharge Summary ---
Providers - Providers Date of Admission: 12/29/16 14:58 Date of discharge: 01/01/17 Attending physician: NIKI GREENFIELD 12/30/16 10:45 Consult to Dietitian/Nutrition [CONS] Routine Physician Instructions: Reason For Exam: Reason for Consult: Diet education Primary care physician: SENIOR PRODUCT ANALYST Hospitalization Reason for admission: symptomatic anemia Condition: Stable Hospital course: Patient is a 71 y/o female with significant past medical history of hypertension , diabetes mellitus and depression presented to the ER with c/o BRBPR x 2 days, lightheadedness, and feeling weak. She admits to seeing intermittent blood clots with BMs prior to admission. She denies CP, SOB, dizziness, abd pain, N/ V, fever, wt loss, melena, diarrhea, or constipation. No hx or Fhx of IBD or liver disease. No NSAID or ETOH use. Reports having an EGD/colonoscopy approximately 3 to 4 years ago with negative results. No Fhx of colon CA. The patient was seen by GI consultation who performed a colonoscopy which revealed grade 2 internal hemorrhoids, trace brown stool that was easily lavaged with no blood and diverticulosis which is thought to be the source of bleeding. GI recommended a regular diet, multivitamin daily therapy and discharged home. Patient is to avoid all NSAIDs for the next 2 weeks. H&H remained stable, therefore patient will be discharged home. Dedicated discharge time 31 minutes. Disposition: DC-01 TO HOME OR SELFCARE Time spent for discharge: 31 Core Measure Documentation - Palliative Care Palliative Care/ Comfort Measures: Not Applicable - Core Measures Any of the following diagnoses?: none Exam - Constitutional Vitals: Temp Pulse Resp BP Pulse Ox 98.6 F 107 H 20 125/58 100 12/31/16 23:00 12/31/16 23:00 01/01/17 03:44 12/31/16 23:00 12/31/16 23:00 General appearance: Present: no acute distress, well-nourished - EENT Eyes: Present: PERRL ENT: hearing intact, clear oral mucosa - Neck Neck: Present: supple, normal ROM - Respiratory Respiratory effort: normal Respiratory: bilateral: CTA - Cardiovascular Heart Sounds: Present: S1 & S2. Absent: rub, click - Extremities Extremities: pulses symmetrical, No edema Peripheral Pulses: within normal limits - Abdominal General gastrointestinal: Present: soft, non-tender, non-distended, normal bowel sounds Female genitourinary: Present: normal - Integumentary Integumentary: Present: clear, warm, dry - Musculoskeletal Musculoskeletal: gait normal, strength equal bilaterally - Psychiatric Psychiatric: appropriate mood/affect, intact judgment & insight - Neurologic Neurologic: CNII-XII intact, moves all extremities Plan Activity: no restrictions Weight Bearing Status: Full Weight Bearing Diet: regular Follow up with: PRIMARY CAREMD [Primary Care Provider] - 3-5 Days XIAO ARVIZU MD [Staff Physician] - 7 Days Forms: Accompanied Note Prescriptions: amLODIPine [Norvasc] 10 mg PO DAILY #30 tablet Multivitamin Tab W-MINERAL [Multiple Vitamin/Mineral (Theragran M)] 1 each PO QDAY #30 tablet Pantoprazole [Protonix TAB] 40 mg PO QDAY #30 tablet Triamter/Hctz 75-50 mg [Maxzide 75-50 mg] 1 tab PO QDAY #30 tablet
[2017-01-01] MEDS: THERAGRAN-M Tab PO SCH (09:30)
[2017-01-01] MEDS ORDERED: PROTONIX PO SCH (10:00)
--- NOTE | 2017-01-01 10:04 | Gastroenterology Progress Note ---
Assessment and Plan - Patient Problems (1) Acute blood loss anemia Current Visit: Yes Status: Acute Plan to address problem: - Colonoscopy 12/31 (-) except tics and trace brown stool. - Patient does have a hx of chronic anemia (has taken iron in the past) but no prior record of hemoglobinopathy panel (will draw) and will also check her total iron stores. - Will continue MVI therapy and protonix daily. - Will recheck labs at noon; if stable or improved, OK to d/c home. - F/U clinic to decide re: capsule endoscopy. Subjective Date of service: 01/01/17 Principal diagnosis: GI Bleed Interval history: The patient tolerated a regular diet yesterday and this AM. She has had no N/V/ abdominal pain. She has had no blood per rectum, hematemesis, or melena since prior to the colonoscopy. Objective - Constitutional Vitals: Temp Pulse Resp BP Pulse Ox 97.8 F 78 18 137/68 99 01/01/17 08:00 01/01/17 08:00 01/01/17 08:00 01/01/17 08:00 01/01/17 08:00 General appearance: no acute distress - EENT Eyes: PERRL, EOM intact ENT: hearing intact, clear oral mucosa - Respiratory Respiratory effort: normal Respiratory: bilateral: CTA - Cardiovascular Rhythm: regular Heart Sounds: Present: S1 & S2 - Gastrointestinal General gastrointestinal: Present: soft, non-tender, non-distended - Labs CBC & Chem 7: 01/01/17 05:12 01/01/17 05:12 Labs: Laboratory Results - last 24 hr 01/01/17 01/01/17 05:12 05:12 WBC 5.8 RBC 3.17 L Hgb 7.7 L Hct 23.9 L MCV 76 L MCH 24 L MCHC 32 RDW 16.5 H Plt Count 231 Lymph % (Auto) 32.3 [place] % (Auto) 6.5 Eos % (Auto) 2.1 Baso % (Auto) 0.5 Lymph # 1.9 [place] # 0.4 Eos # 0.1 Baso # 0.0 Seg Neutrophils % 58.6 Seg Neutrophils # 3.4 Sodium 142 Potassium 4.1 Chloride 105.0 Carbon Dioxide 27 Anion Gap 14 BUN 12 Creatinine 1.1 Estimated GFR 60 BUN/Creatinine Ratio 10.90 Glucose 99 Calcium 8.1 L
[2017-01-01 15:21] LABS: Iron 23 ug/dL (37-170); Total Iron Binding Capacity 189 mcg/dL (250-450)
[2017-01-01 16:00] VITALS: BP 114/56
== END 2017-01-01 17:30 | disposition home or self-care (01) | DRG 377 ==
LOC: ED 10:43 → 3A 14:52 → OBSVTOIN 14:58
PROVIDERS: ADMIT Internal Medicine; ATTEND Hospitalist
PROC: 0DJD8ZZ Inspection of Lower Intestinal Tract, Via Natural or Artificial Opening Endoscopic (ICD-10-PCS; principal; 2016-12-31)
DX: K57.91 Diverticulosis of intestine, part unspecified, without perforation or abscess with bleeding (principal); N17.0 Acute kidney failure with tubular necrosis; D62 Acute posthemorrhagic anemia; Z68.42 Body mass index [BMI] 45.0-49.9, adult; K64.1 Second degree hemorrhoids; E66.01 Morbid (severe) obesity due to excess calories; I10 Essential (primary) hypertension; E11.9 Type 2 diabetes mellitus without complications; M19.90 Unspecified osteoarthritis, unspecified site; Z96.652 Presence of left artificial knee joint; F32.9 Major depressive disorder, single episode, unspecified; F34.1 Dysthymic disorder; N18.3 Chronic kidney disease, stage 3 (moderate); Z90.710 Acquired absence of both cervix and uterus; Z87.442 Personal history of urinary calculi; Z82.49 Family history of ischemic heart disease and other diseases of the circulatory system; Z80.3 Family history of malignant neoplasm of breast; Z71.3 Dietary counseling and surveillance
CPT/HCPCS: 36415; 80048; 80053; 82270; 82728; 83550; 83690; 85014; 85018; 85025; 85027; 85610; 85730; 86850; 86900; 86901; 90732; 93005; 93010; 96360; 96361; C9113; J2704; J7030

== ENCOUNTER 2017-03-10 10:46 | Emergency (ER) | payer MEDICARE ==
--- NOTE | 2017-03-10 11:37 | Emergency Department Report ---
Chief Complaint: Abdominal Pain Stated Complaint: ABD PAIN Time Seen by Provider: 03/10/17 11:30 - HPI History of Present Illness: All systems are negative unless stated in HPI above - ROS Review of Systems: Gen.: This is a 71-year-old female well-nourished well-developed in no acute distress Abdomen: Nontender to palpate in all quadrants, no CVA tenderness. No guarding or rebound. Patient just reports that it sore to palpate the right lower abdomen. No peritoneal signs. - Exam Vital Signs: Vital Signs 03/10/17 11:14 Temperature 98 F Pulse Rate 103 H Blood Pressure 148/76 O2 Sat by Pulse 100 Oximetry Respirations 19 Physical Exam: Patient reports that she has been having an abdominal pain on and off for the last few months but getting worse over the last 2 weeks. She said the pain is crampy. It is located to her right side and lower abdomen. Denies any urinary burning frequency or urgency. Denies any nausea or vomiting. Patient was here in December 2016 and was admitted for GI bleed. Patient does have a primary care physician and [employer]ER. She has paper to go to outpatient lab to have transvaginal ultrasound but she says she has not been able to do so. MSE screening note: Focused history and physical exam performed. Due to findings the following was ordered:see mdm ED Medical Decision Making - Medical Decision Making MDM: Patient screened by provider in triage area. Appropriate protocol initiated and patient to be seen in main ED by provider ED Disposition for MSE Condition: Stable Instructions: Abdominal Pain (ED)
[2017-03-10 12:31] LABS: Basophils % (Auto) 0.3 % (0.0-1.8); Eosinophils % (Auto) 1.9 % (0.0-4.3); Hematocrit 33.3 % (30.3-42.9); Hemoglobin 10.4 gm/dl (10.1-14.3); Mean Corpuscular HGB Conc 31 % (30-34); Mean Corpuscular Volume 73 fl (79-97); Platelet Count 308 K/mm3 (140-440); Red Blood Count 4.56 M/mm3 (3.65-5.03); Red Cell Distribution Width 16.3 % (13.2-15.2); White Blood Count 5.9 K/mm3 (4.5-11.0)
[2017-03-10 12:36] LABS: Albumin 3.7 g/dL (3.9-5); Albumin/Globulin Ratio 1.1 %; Bilirubin,Total 0.3 mg/dL (0.1-1.2); Chloride 102.9 mmol/L (98-107); Potassium 4.9 mmol/L (3.6-5.0)
[2017-03-10 12:41] LABS: Mean Corpuscular Hemoglobin 23 pg (28-32)
[2017-03-10] MEDS ORDERED: ZOFRAN IV ONE (21:57)
[2017-03-10] MEDS ORDERED: MORPHINE IV ONE (21:57)
--- NOTE | 2017-03-10 22:02 | Emergency Department Report ---
ED Abdominal Pain HPI - General Chief Complaint: Abdominal Pain Stated Complaint: ABD PAIN Time Seen by Provider: 03/10/17 11:37 Source: patient Mode of arrival: Ambulatory Limitations: No Limitations - History of Present Illness Initial Comments: Patient is a 71-year-old female coming today with 2 weeks history of right flank pain radiated to the groin area. Patient stated that the pain is worse when she start moving. Patient denied any fever nausea or vomiting or diarrhea. MD Complaint: abdominal pain, flank pain -: week(s) Location: R flank Radiation: other (suprapubic) Severity: moderate Severity scale (0 -10): 5 Quality: sharp Associated Symptoms: denies: nausea, vomiting, diarrhea, fever - Related Data Home Medications Medication Instructions Recorded Confirmed Last Taken Lisinopril 10 mg PO BID 03/09/14 12/30/16 12/28/16 08:00 Multivitamin [Multi-Vitamin Daily] 1 each PO DAILY 03/09/14 12/30/16 12/28/16 08 :00 Previous Rx's Medication Instructions Recorded Last Taken Type Multivitamin Tab W-MINERAL 1 each PO QDAY #30 tablet 01/01/17 Unknown Rx [Multiple Vitamin/Mineral (Theragran M)] Pantoprazole [Protonix TAB] 40 mg PO QDAY #30 tablet 01/01/17 Unknown Rx Triamter/Hctz 75-50 mg [Maxzide 1 tab PO QDAY #30 tablet 01/01/17 Unknown Rx 75-50 mg] amLODIPine [Norvasc] 10 mg PO DAILY #30 tablet 01/01/17 Unknown Rx cloNIDine-TTS PATCH [Catapres-Tts 0.2 mg TD QWEEK patch 01/01/17 Unknown Rx Patch] Ciprofloxacin HCl [Ciprofloxacin 500 mg PO Q12H #14 tab 03/11/17 Unknown Rx TAB] Docusate Sodium [Colace] 100 mg PO BID #60 capsule 03/11/17 Unknown Rx Lactulose 10 gm PO DAILY PRN #150 ml 03/11/17 Unknown Rx Allergies Allergy/AdvReac Type Severity Reaction Status Date / Time No Known Allergies Allergy Verified 12/29/16 11:39 ED Review of Systems ROS: Stated complaint: ABD PAIN Other details as noted in HPI Comment: All other systems reviewed and negative Constitutional: denies: chills, fever Respiratory: denies: cough, orthopnea, shortness of breath, SOB with exertion Cardiovascular: denies: chest pain, palpitations Gastrointestinal: abdominal pain. denies: nausea, vomiting, diarrhea, constipation, hematemesis, melena, hematochezia Genitourinary: urgency, frequency Musculoskeletal: back pain Neurological: denies: headache, weakness, numbness, paresthesias ED Past Medical Hx - Past Medical History Hx Hypertension: Yes Hx Diabetes: Yes (BOUDERLINE/DIET CONTROL) Hx Renal Disease: Yes (elevated creatinine on admission- resolved) Hx Arthritis: Yes Hx Kidney Stones: Yes - Surgical History Additional Surgical History: LEFT KNEE REPLACEMENT. HYSTERECTOMY - Social History Smoking Status: Never Smoker Substance Use Type: None - Medications Home Medications: Home Medications Medication Instructions Recorded Confirmed Last Taken Type Lisinopril 10 mg PO BID 03/09/14 12/30/16 12/28/16 08:00 History Multivitamin [Multi-Vitamin Daily] 1 each PO DAILY 03/09/14 12/30/16 12/28/16 08 :00 History Multivitamin Tab W-MINERAL 1 each PO QDAY #30 tablet 01/01/17 Unknown Rx [Multiple Vitamin/Mineral (Theragran M)] Pantoprazole [Protonix TAB] 40 mg PO QDAY #30 tablet 01/01/17 Unknown Rx Triamter/Hctz 75-50 mg [Maxzide 1 tab PO QDAY #30 tablet 01/01/17 Unknown Rx 75-50 mg] amLODIPine [Norvasc] 10 mg PO DAILY #30 tablet 01/01/17 Unknown Rx cloNIDine-TTS PATCH [Catapres-Tts 0.2 mg TD QWEEK patch 01/01/17 Unknown Rx Patch] Ciprofloxacin HCl [Ciprofloxacin 500 mg PO Q12H #14 tab 03/11/17 Unknown Rx TAB] Docusate Sodium [Colace] 100 mg PO BID #60 capsule 03/11/17 Unknown Rx Lactulose 10 gm PO DAILY PRN #150 ml 03/11/17 Unknown Rx ED Physical Exam - General Limitations: No Limitations General appearance: alert, in no apparent distress - Head Head exam: Present: normocephalic - Eye Eye exam: Present: normal appearance - Neck Neck exam: Present: normal inspection - Respiratory Respiratory exam: Present: normal lung sounds bilaterally. Absent: respiratory distress, wheezes, rales, rhonchi, accessory muscle use, decreased breath sounds - Cardiovascular Cardiovascular Exam: Present: regular rate, normal rhythm, normal heart sounds - GI/Abdominal GI/Abdominal exam: Present: soft, tenderness (suprapubic), normal bowel sounds. Absent: distended, guarding, rebound, rigid, hyperactive bowel sounds, hypoactive bowel sounds, mass, bruit, pulsatile mass - Extremities Exam Extremities exam: Present: normal inspection, normal capillary refill. Absent: tenderness, pedal edema - Back Exam Back exam: Present: CVA tenderness (R). Absent: tenderness, muscle spasm, paraspinal tenderness - Neurological Exam Neurological exam: Present: alert, oriented X3, CN II-XII intact, normal gait - Skin Skin exam: Present: warm, intact, normal color ED Course Vital Signs 03/10/17 03/10/17 11:14 23:15 Temperature 98 F 98 F Pulse Rate 103 H 86 Respiratory 16 Rate Blood Pressure 148/76 Blood Pressure 158/79 [Left] O2 Sat by Pulse 100 99 Oximetry ED Medical Decision Making - Lab Data Result diagrams: 03/10/17 12:05 03/10/17 12:05 - EKG Data -: EKG Interpreted by Me Rate: normal - EKG Data Interpretation: no acute changes - Radiology Data Radiology results: report reviewed CT abdomen and pelvis showed a 3 mm nonobstructing kidney stone, moderate amount of stool no other acute abnormalities - Medical Decision Making Patient stated that she is feeling better labs reviewed showed UTI. We'll discharge home with ciprofloxacin for 7 days lactulose for constipation and a follow-up with her primary care physician. Critical care attestation.: If time is entered above; I have spent that time in minutes in the direct care of this critically ill patient, excluding procedure time. ED Disposition Clinical Impression: Abdominal pain, UTI (urinary tract infection), Constipation Disposition: - TO HOME OR SELFCARE Is pt being admited?: No Condition: Stable Instructions: Abdominal Pain (ED), Constipation (ED), High Fiber Diet (ED) Referrals: PRIMARY CARE,MD [Primary Care Provider] - 3-5 Days Forms: Work/School Release Form(ED)
[2017-03-11 00:57] LABS: Bilirubin,Urine NEG (Negative); Blood,Urine NEG (Negative); Ketones,Urine NEG (Negative); Leukocyte Esterase,Urine SM (Negative); Mucus,Urine FEW /HPF; Nitrite,Urine NEG (Negative); Urobilinogen,Urine < 2.0 mg/dL (<2.0)
--- NOTE | 2017-03-11 01:07 | Cat Scan Report ---
FINAL REPORT EXAM: CT ABDOMEN PELVIS W CON HISTORY: abdominal pain COMPARISON: CT of the abdomen and pelvis from August 29, 2016. TECHNIQUE: Contiguous axial images were obtained. Additional sagittal and coronal reformatted images were obtained. Administration of IV contrast given per institution protocol. Images submitted for interpretation. 100 cc Omnipaque 300. FINDINGS: Lung bases are clear. Moderate hiatal hernia. Small lymph nodes at the margin of the hiatal hernia suspected to be reactive. No calcified gallstones or biliary dilatation. Homogeneous enhancement of the liver, spleen, pancreas and adrenal glands. No solid renal lesion. Stable 3 millimeter nonobstructive right renal calculus. 5.2 centimeter left renal cyst. Duplication the right renal collecting system, anatomic variant. The ureters join together at the level the UVJ. Aorta and IVC are normal in caliber. Mild calcification of the aorta. Urinary bladder is unremarkable. Uterus is surgically absent. Ovaries are not visualized and may also be surgically absent. The appendix is gas-filled and normal in caliber. Moderate stool in the colon. No focal inflammatory changes the bowel. Grade 1 anterolisthesis of L4 on L5 due to facet changes. Moderate degenerative changes of lumbar spine. Bony pelvis is grossly intact. IMPRESSION: No focal inflammatory changes of the abdomen and pelvis. Stable 3 millimeter nonobstructive right renal calculus. Moderate hiatal hernia.
[2017-03-11 02:34] VITALS: BP 164/78
== END 2017-03-11 01:40 | disposition home or self-care (01) ==
LOC: ED 10:46
DX: N39.0 Urinary tract infection, site not specified (principal); R10.30 Lower abdominal pain, unspecified; K59.00 Constipation, unspecified
CPT/HCPCS: 36415; 74177; 80053; 81001; 83690; 85025; 96374; 96375; 99284; J2270; J2405; Q9967